=== PATIENT | female | born 1960 | race Caucasian/White ===

== ENCOUNTER 2025-09-29 10:00 | Emergency (ER) | payer OTHER, SELFPAY ==
[2025-09-29] VITALS (7 sets, daily range): BP systolic 129–143; BP diastolic 71–84; PULSE 70–77; RESP 14–20; TEMP 36.1; O2SAT 93–98
--- NOTE | ~2025-09-29 | CT_ITS ---
EXAMINATION: CT cervical spine wo con DATE: 09/29/2025 10:58 INDICATION: Headache, dizziness, weakness and cervical pain TECHNIQUE: Computed tomography (CT) of the cervical spine was performed without intravenous contrast. Automated exposure control and iterative reconstruction technique were employed. The dose-length product was 403.03 mGy-cm. COMPARISON: None FINDINGS: Alignment is normal. Likely developmental anterior and posterior spinal fusion at C2-C3. There is additional fusion across the right C3-C4 facet joint. Unfused vertebral body heights are normal. Cervical disc heights are normal. Mild disc height loss at T2-T3. Multilevel cervical uncovertebral osteoarthritis, moderate severity on the left at C3-C4 and otherwise mild. Severe facet osteoarthritis on the left at C5-C6 and on the right at C4-C5. Mild to moderate osteoarthritis at the remaining cervical facet joints. There is mild neural foraminal stenosis on the left at C3-C4, on the right at C3-C4 and bilaterally at C5-C6. No central canal stenosis. Cervical soft tissues are unremarkable. Minimal biapical pleural-parenchymal scarring. IMPRESSION: 1. Mild neural foraminal stenosis at a few levels in the cervical spine due to combination of cervical facet and uncovertebral osteoarthritis as detailed above. No acute osseous abnormality. 2. Likely developmental anterior and posterior fusion at C2-C3 with additional fusion across the left C3-C4 facet joint. Reviewed, dictated and finalized at location A. RT MANAGER IMPRESSION: 1. Mild neural foraminal stenosis at a few levels in the cervical spine due to combination of cervical facet and uncovertebral osteoarthritis as detailed abov e. No acute osseous abnormality. 2. Likely developmental anterior and posterior fusion at C2-C3 with additional fusion across the left C3-C4 facet joint.
--- NOTE | ~2025-09-29 | CT_ITS ---
EXAMINATION: CT brain wo con DATE: 09/29/2025 10:59 INDICATION: Headache, dizziness and weakness TECHNIQUE: Computed tomography (CT) of the head was performed without intravenous contrast. Sagittal and coronal reconstructions were performed. The mA was adjusted according to patient size. Iterative reconstruction technique was employed. The dose-length product was 605.33 mGy-cm. COMPARISON: None FINDINGS: No acute intracranial hemorrhage, acute infarction or abnormal extra axial fluid collection. There is mild scattered white matter hypoattenuation consistent with chronic small vessel ischemic disease. Ventricles are normal and symmetric. No mass/mass effect. Osteoma the right frontoethmoidal recess with complete opacification of the small right frontal sinus. Large right mastoid effusion. The right middle ear cavity remains clear as do the left mastoid air cells and middle ear cavity. Orbits are normal. IMPRESSION: 1. No acute intracranial process. 2. Mild scattered white matter hypoattenuation consistent with chronic small vessel ischemic disease. 3. Large right mastoid effusion. 4. 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 Correlate clinically for acute or chronic sinusitis. Reviewed, dictated and finalized at location A. ON CREWMEMBER IMPRESSION: 1. No acute intracranial process. 2. Mild scattered white matter hypoattenuation consistent with chronic small ve ssel ischemic disease. 3. Large right mastoid effusion. 4. 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 Correlate clinically for acute or chronic s inusitis.
--- NOTE | ~2025-09-29 | XR_ITS ---
EXAMINATION: XR chest 2V DATE: 09/29/2025 10:58 INDICATION: Headache, dizziness and weakness TECHNIQUE: PA and lateral views of the chest were obtained. COMPARISON: None FINDINGS: Osteopenia lingular atelectasis along side a small left pericardial fat pad. Opacities, pulmonary edema, pleural effusion or pneumothorax. The cardiomediastinal silhouette is normal. Visualized bones and soft tissues are unremarkable. IMPRESSION: 1. Mild lingular atelectasis. No other acute cardiopulmonary disease. Reviewed, dictated and finalized at location A. STANT FOREMAN
--- NOTE | 2025-09-29 10:14 | ED_ITS ---
HPI - Headache General Chief Complaint: Dizziness Stated Complaint: headache, dizzy, nausea Time Seen by Provider: 09/29/25 10:07 Source: patient Mode of arrival: ambulatory Limitations: no limitations History of Present Illness HPI Narrative: Patient is a 65-year-old female with a headache in the posterior aspect of her head which acute onset today. She has associated nausea and dizziness and generalized weakness. She is feeling better at this time compared to earlier this morning. No vomiting or diarrhea. No abdominal pain. No focal neurological changes. Normal vision. Normal speech. Patient is not a typical headache patient. No fever or chills. MD elicited complaint: headache Pertinent past history: other (None; she had head injury 3-4 years ago but otherwise no medication or problems) Onset (ago): day(s) (1 (8:30 a.m.)) Onset description: suddenly, while at rest and on awakening Location: occipital Severity: moderate Pain scale (0-10): 5 Quality & Timing: throbbing, sharp, steady and constant Exacerbating factors: none Relieving factors: nothing Context: occurred at rest Associated symptoms: weakness and lightheadedness Treatments prior to arrival: other (aspirin) Related Data Home Medications ?Medication ?Instructions ?Recorded ?Confirmed ?Last Taken ?Type cholecalciferol (vitamin D3) 1,250 1,250 mcg PO WEEKLY 09/29/25 Unknown History mcg (50,000 unit) capsule Allergies Allergy/AdvReac Type Severity Reaction Status Date / Time No Known Allergies Allergy Verified 09/29/25 11:34 Review of Systems 2 Review of Systems: All systems reviewed & are unremarkable except as noted in HPI and below Constitutional: Constitutional: Reports no additional constitutional complaints Eyes: Eyes: Reports no additional eye complaints ENT: Reports system reviewed and no additional complaints, except as documented Cardiovascular: Cardiovascular: Reports no additional cardiovascular complaints Respiratory: Respiratory: Reports no additional respiratory complaints Gastrointestinal: Gastrointestinal: Reports no additional gastrointestinal complaints Genitourinary: Genitourinary: Reports no additional female genitourinary complaints Musculoskeletal: Musculoskeletal: Reports no additional musculoskeletal complaints Integumentary/Breasts: Skin/Breast: Reports system reviewed and no additional complaints, except as docu Neurologic: Reports system reviewed and no additional complaints, except as documented Psychiatric: Psychiatric: Reports no additional psychiatric complaints Endocrine: Endocrine: Reports no additional endocrine complaints Hematologic/Lymphatic: Hematologic/Lymphatic: Reports no additional hematologic/lymphatic complaints Allergic/Immunologic: Allergic/Immunologic: Reports no additional allergic/immunologic complaints Exam 2 Const: General: healthy appearing Nutritional Appearance: well nourished Orientation/consciousness: patient oriented x3 Limitations: no limitations HENMT: Head: normal to inspection Ears: external ears normal F ernesto/Nose/Sinus: Normal external nose present Eyes: Conjunctivae: conjunctivae normal Pupils: Equal, round and reactive pupils present EOM: EOMs intact bilaterally Neck: Neck: normal visual inspection Chest: Chest palpation & inspection: normal inspection of the chest Resp: Effort & Inspection: normal respiratory effort and not labored A uscultation: clear to auscultation bilaterally and no crackles Cardio: Rate: regular rate Rhythm: regular rhythm Heart sounds: no murmurs GI: Inspection: non-distended GI Palp: Yes Soft to palpation, No Tenderness to palpation present (GI) and No Guarding due to palpation present (GI) A uscultation: normal bowel sounds and bowel sounds present : General: Yes bladder normal to palpation Back/Spine/Pelvis: Back: no CVA tenderness Cervical Spine: collar present Skin: General skin exam: normal color Rashes: no rashes Wounds: no wounds Neuro: General: patient oriented x3, moves all extremities, no meningeal signs, no focal motor deficits and CN's II-XI intact bilaterally Cranial nerves: Yes Nystagmus not present Speech: normal speech Gait exam (Neuro): gait abnormal (Slightly ataxic) Other: Fast exam negative, NIH score is 0, GCS is 15 Extrem: General: normal to inspection, no clubbing, cyanosis or edema and no pedal edema Psych: Mental Status: mental status grossly normal Affect: normal affect Attitude: cooperative Course Vital Signs Vital signs: Vital Signs Temperature 36.1 C L 09/29/25 10:00 Pulse Rate 74 09/29/25 10:00 Respiratory Rate 20 09/29/25 10:00 Blood Pressure 143/84 H 09/29/25 10:00 Pulse Oximetry 98 09/29/25 10:00 Oxygen Delivery Room Air 09/29/25 10:00 Temperature 36.1 C L 09/29/25 10:00 Pulse Rate 77 09/29/25 12:06 Respiratory Rate 20 09/29/25 12:06 Blood Pressure 129/78 09/29/25 12:06 Pulse Oximetry 96 09/29/25 12:06 Oxygen Delivery Room Air 09/29/25 12:06 [facility] Narrative Medical decision making narrative: Patient is a 65-year-old female with a posterior head headache with some lightheaded/dizziness and generalized weakness earlier today. We will do a neurocardiogenic workup at this time. Differential Diagnosis Differential Diagnosis: TIA/CVA, brain bleed, NPH Lab Data [facility] Lab Attestation statement: I personally reviewed the patient's lab results. 09/29/25 10:44 09/29/25 10:44 Labs: Lab Results 09/29/25 09/29/25 Range/Units 10:44 11:02 WBC 4.5 L (4.8-10.8) K/mm3 RBC 4.20 (4.20-5.40) M/mm3 Hgb 12.4 (12.0-15.0) g/dL Hct 38.6 (35.0-49.0) % MCV 91.9 (78.0-102.0) fL MCH 29.5 (27.0-31.0) pg MCHC 32.1 (32-36) g/dL RDW 13.5 (11.6-14.4) % Plt Count 265 (150-420) K/mm3 MPV 9.7 (9.2-11.8) fl Immature Gran % (Auto) 0.2 H (0.0-0.0) % Neut % (Auto) 64.4 (50.0-70.0) % Lymph % (Auto) 25.5 (18.0-42.0) % Lee % (Auto) 7.4 (2.0-11.0) % Eos % (Auto) 1.6 (1.0-6.0) % Baso % (Auto) 0.9 (0.0-1.0) % Lymph # (Auto) 1.14 (1.10-4.50) K/mm3 Lee # (Auto) 0.33 (0.10-0.90) K/mm3 Eos # (Auto) 0.07 (0.02-0.50) K/mm3 Baso # (Auto) 0.04 (0.00-0.10) K/mm3 Abs Immat Gran (auto) 0.01 H (0.00-0.00) K/mm3 Absolute Neuts (auto) 2.88 (1.70-7.20) K/mm3 Absolute Nucleated RBC 0.00 (0.00-0.00) K/mm3 Nucleated RBC % 0.0 (0-0.0) % ESR 17 (0-20) mm/hr PT 10.3 (9.50-12.1) Seconds INR 0.9 APTT 26.8 (23.9-30.70) Sec Sodium 142 (137-145) mmol/L Potassium 4.2 (3.4-5.0) mmol/L Chloride 108 H (98-107) mmol/L Carbon Dioxide 23 (22-30) mmol/L Anion Gap 11 (4-12) mmol/L BUN 15 (7-17) mg/dL Creatinine 0.70 (0.7-1.0) mg/dL Estim Creat Clear Calc 87 ml/min Estimated GFR > 60 (59 - ) Glucose 107 (65-110) mg/dL Calculated Osmolality 294 (285-295) mOsm/kg Lactic Acid 1.0 (0.7-2.0) mmol/L Calcium 9.4 (8.4-10.2) mg/dL Total Bilirubin 0.5 (0.2-1.3) mg/dL AST 26 (14-36) U/L ALT 29 (6-35) U/L Alkaline Phosphatase 85 (38-126) U/L Troponin I < 0.012 (0.000-0.034) ng/mL Total Protein 7.0 (6.3-8.2) g/dL Albumin 4.5 (3.5-5.1) g/dL Urine Color Yellow (Yellow) Urine Appearance Clear (Clear) Urine pH 6.0 (5.0-8.0) Ur Specific [place] 1.025 H (1.010-1.020) Urine Protein Negative (Negative) Urine Glucose (UA) Negative (Negative) Urine Ketones Negative (Negative) Ur Blood (Man) Negative (Negative) Urine Nitrate Negative (Negative) Urine Bilirubin Negative (Negative) Urine Urobilinogen 0.2 (0.2-1.0) mg/dL Leukocyte Esterase Rfl Negative (Negative) ULI/UL Influenza A (RT-PCR) Negative (Negative) Influenza B (RT-PCR) Negative (Negative) RSV (RT-PCR) Negative (Negative) SARS-CoV-2 RNA (RT-PCR) Negative (Negative) Imaging Data Attestation: I personally reviewed and interpreted this imaging study as follows: Radiologist's impression: ITS Impressions Chest X-Ray 09/29/25 10:59 IMPRESSION: 1. Mild lingular atelectasis. No other acute cardiopulmonary disease. Head CT 09/29/25 11:00 IMPRESSION: 1. No acute intracranial process. 2. Mild scattered white matter hypoattenuation consistent with chronic small vessel ischemic disease. 3. Large right mastoid effusion. 4. 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 Correlate clinically for acute or chronic sinusitis. Cervical Spine CT 09/29/25 11:31 IMPRESSION: 1. Mild neural foraminal stenosis at a few levels in the cervical spine due to combination of cervical facet and uncovertebral osteoarthritis as detailed above. No acute osseous abnormality. 2. Likely developmental anterior and posterior fusion at C2-C3 with additional fusion across the left C3-C4 facet joint. ECG Data EKG #1: Attestation: I personally reviewed and interpreted this ECG as follows: ECG completion date: 09/29/25 ECG completion time: 10:40 normal rate, sinus rhythm, no ectopy, non-specific ST changes, normal QRS, normal QT and NL axis Discharge Plan Discharge Clinical Impression: Sinusitis Qualifiers: Sinusitis location: unspecified location Chronicity: acute Recurrence: non- recurrent Qualified Code(s): J01.90 - Acute sinusitis, unspecified Mastoiditis Qualifiers: Laterality: right Qualified Code(s): H70.91 - Unspecified mastoiditis, right ear Patient Disposition: Home Condition: Stable Instructions: Sinusitis (ED), Mastoiditis (ED) Additional Instructions: Please follow-up with the primary doctor in the next week. Please come back to the emergency room for worse symptoms. Patient Language: [place] Zealander Prescriptions: New levofloxacin 750 mg tablet 750 mg PO DAILY 8 Days Qty: 8 0RF prednisone 20 mg tablet 40 mg PO DAILY 3 Days Qty: 6 0RF meclizine 25 mg tablet 25 mg PO TID PRN (Reason: dizziness) Qty: 30 0RF No Action cholecalciferol (vitamin D3) 1,250 mcg (50,000 unit) capsule 1,250 mcg PO WEEKLY Follow-up/Referrals: Ravi,Candy Calvin MD [Non-Staff, Unknown] Time of Disposition: 12:07
--- NOTE | 2025-09-29 10:27 | ECG_ITS ---
Test Date: 2025-09-29 10:35:56 Measurements Intervals [place] Rate: 69 P: 37 IA: 180 QRS: 69 QRSD: 101 T: 89 QT: 382 QTc: 411 Interpretive Statements SINUS RHYTHM NORMAL ECG No previous ECG available for comparison Electronically Signed On 09-29-2025 20:06:47 [employer]IPPER by Yung Khalil D.O.
--- OUTSIDE RECORDS SUMMARY | 2025-09-29 10:32 | XMS_ITS | Encounter Summary ---
Author Organization [facility] Address [facility] [place] [address] Care Team Providers Care Traveling Secretary Name Role Phone Arnaldo Del Rosario MD Primary Care Provider [phone] Encounter Details Date Type Department Care Team (Late st Contact Info) Description 03/12/2019 Abstract [facility] CONVERSION [address] [place] [address] , Generic Conversion, Social History Tobacco Use Types Packs/Day Years Used Date Smoking Tobacco: Never Assessed Comments Unknown Sex and Gender Information Value Date Recorded Sex Assigned at Not on file Legal 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
--- OUTSIDE RECORDS SUMMARY | 2025-09-29 10:32 | XMS_ITS | Clinical Summary ---
Author Organization [facility] Address [facility] [place] [address] Care Team Providers Care Senior Care Specialist Name Role Phone Arnaldo Del Rosario MD Primary Care Provider Allergies No known active allergies Medications No known medications Active Problems No known active problems Encounters Date Type Department Care Team Description 08/28/2025 Orders Only [facility] [address] [facility] [place] [address] Candy Rodrigues MD from Last 3 Months Social History Tobacco Use Types Packs/Day Years Used Date Smoking Tobacco: Former Cigarettes Smokeless Tobacco: Never Comments No Sex and Gender Information Value Date Recorded Sex Assigned at Not on file 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 Gender Identity Not on file Sexual Orientation Not on file Last Filed Vital Signs Vital Sign Reading Time Taken Comments Blood Pressure 177/100 11/11/2020 3:42 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 Pulse 94 11/11/2020 3:42 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 Temperature 36.9 C (98.5 F) 11/11/2020 3:42 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 Respiratory Rate 18 11/11/2020 3:42 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 Oxygen Saturation 93% 11/11/2020 4:15 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 Inhaled Oxygen Concentration - - Weight 88.5 kg (195 lb) 11/11/2020 3:42 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 Height 175.3 cm (5' 9) 11/11/2020 3:42 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 Body Mass Index 28.8 11/11/2020 3:42 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 Plan of Treatment Health Maintenance Due Date Last Done Comments Cervical Cancer Screening Pa p Smear (Age 30 to 64) Every 3 Years 1962 Colorectal Cancer Screening Colonoscopy (10 Years) 1962 Annual Physical 1965 Hepatitis C 02/28/1980 DTaP, Tdap and Td Vaccines ( 1 - Tdap) 1981 Cervical Cancer Screening Pa p with HPV Testing (Age 30 to 64) Every 5 Years 02/28/1992 Cervical Cancer Screening with HPV 02/28/1992 Mammogram Screening 2002 Pneumococcal Vaccine: 50+ Ye ars (1 of 1 - PCV) 02/28/2012 Zoster Vaccines (1 of 2) 02/28/2012 COVID-19 Vaccine (1 - 2024-2 6 season) 2025 Influenza Adult (#1) 2025 RSV Immunization or 60+ Years (1 - 1-dose 75+ series) 2037 Hepatitis A Vaccines Aged Out No long er eligible based on patient's age to complete this topic Meningococcal B Vaccine Aged Out No l onger eligible based on patient's age to complete this topic Meningococcal Vaccine Aged Out No dewey sade eligible based on patient's age to complete this topic RSV Immunizations Under 20 Months Aged Out No longer eligible based on patient's age to complete this topic Insurance CR[employer] Care Teams Senior Care Specialist Relationship Specialty Start Date End Date Arnaldo Del Rosario MD [address] [place] [address] PCP - General FAMILY PRACTICE 11/11/20
[2025-09-29 10:52] LABS: Hematocrit 38.6 % (35.0-49.0); Hemoglobin 12.4 g/dL (12.0-15.0); Immature Granulocyte Percent A 0.2 % (0.0-0.0); Lymphocytes Absolute Auto 1.14 K/mm3 (1.10-4.50); Mean Corpuscular HGB Conc 32.1 g/dL (32-36); Mean Corpuscular Hemoglobin 29.5 pg (27.0-31.0); Mean Corpuscular Volume 91.9 fL (78.0-102.0); Nucleated Red Blood Cells Absolute Auto 0.00 K/mm3 (0.00-0.00); Nucleated Red Blood Cells Perc 0.0 % (0-0.0); Platelet Count Result 265 K/mm3 (150-420); Red Blood Count 4.20 M/mm3 (4.20-5.40); White Blood Count 4.5 K/mm3 (4.8-10.8)
[2025-09-29 11:07] LABS: Add Urine Microscopic? NO; Appearance Urine Clear (Clear); Glucose Urine UA Negative (Negative); Leukocyte Esterase Ur Negative LEU/UL (Negative); Nitrate Urine Negative (Negative); Specific Grav Ur 1.025 (1.010-1.020)
[2025-09-29 11:09] LABS: INR 0.9; Partial Thromboplastin Time 26.8 Sec (23.9-30.70); Prothrombin Time 10.3 Seconds (9.50-12.1)
[2025-09-29 11:22] LABS: Troponin I < 0.012 ng/mL (0.000-0.034)
[2025-09-29 11:23] LABS: Alanine Aminotransferase 29 U/L (6-35); Albumin Level 4.5 g/dL (3.5-5.1); Alkaline Phosphatase 85 U/L (38-126); Anion Gap 11 mmol/L (4-12); Aspartate Amino Transferase 26 U/L (14-36); Bilirubin,Total 0.5 mg/dL (0.2-1.3); Blood Urea Nitrogen 15 mg/dL (7-17); Calcium 9.4 mg/dL (8.4-10.2); Carbon Dioxide 23 mmol/L (22-30); Chloride 108 mmol/L (98-107); Estimated CRCL calculation 87 ml/min; Estimated Glomerular Filt Rate > 60; Glucose 107 mg/dL (65-110); Osmolality Calculated 294 mOsm/kg (285-295); Potassium 4.2 mmol/L (3.4-5.0); Sodium 142 mmol/L (137-145); Total Protein 7.0 g/dL (6.3-8.2)
[2025-09-29 11:31] LABS: Influenza A QL RT-PCR Negative (Negative); Influenza B QL RT-PCR Negative (Negative); RSV RNA, RT-PCR Negative (Negative); SARS-CoV-2 RNA PCR Negative (Negative)
== END 2025-09-29 12:15 | disposition home or self-care (01) ==
PROVIDERS: Emergency Provider Emergency Medicine; PCP Family Medicine
DX: J01.90 Acute sinusitis, unspecified (principal); H70.91 Unspecified mastoiditis, right ear; Z20.822 Contact with and (suspected) exposure to COVID-19; R53.1 Weakness; Z79.82 Long term (current) use of aspirin
CPT/HCPCS: 36415; 70450; 71046; 72125; 80053; 81003; 83605; 84484; 85025; 85610; 85652; 85730; 87637; 93005; 99284; J1885